=== PATIENT | female | born 1990 | race Caucasian/White ===

== ENCOUNTER 2017-04-11 07:05 | Inpatient (IN) | payer BC ==
[2017-04-11] MEDS ORDERED: Misoprostol 25 MCG (1/4 of 100 MCG) Tab ONE (07:19)
[2017-04-11] MEDS ORDERED: Ondansetron 4 MG/2 ML SDV IVPUSH PRN (07:29)
[2017-04-11] MEDS ORDERED: Misoprostol 25 MCG (1/4 of 100 MCG) Tab VAG PRN (07:29)
[2017-04-11] MEDS ORDERED: Sodium Chloride 0.9% 10 ML Syringe FLUSH PRN (07:29)
[2017-04-11] MEDS ORDERED: Ampicillin 2 GM in Sodium Chloride 0.9% 100 ML IV ONE (07:29)
[2017-04-11] MEDS ORDERED: Oxytocin/Lactated Ringers 10 UNIT/1,000 ML BAG IV SCH ×2 (07:30)
--- NOTE | 2017-04-11 07:39 | PCM.LDHP ---
L&D History of Present Illness - General Date of Service: 04/11/17 Admit Problem/Dx: Patient Status Order with Admit Dx/Problem 04/11/17 07:30 Patient Status [ADT] Routine Admission Diagnosis/Problem Admission Diagnosis/Problem Normal Source of Information: Patient History Limitations: Reports: No Limitations - History of Present Illness Introduction:: Patient is a 27 y/o at 39 2/7 wks who presents for planned induction of labor. Doing well today. No patterned contractions, but getting some irritability. - Related Data Allergies/Adverse Reactions: Allergies Allergy/AdvReac Type Severity Reaction Status Date / Time tramadol AdvReac Headache Verified 03/26/15 14:52 Home Medications: Home Meds Cholecalciferol (Vitamin D3) [Vitamin D3] 1 cap PO ASDIRECTED 01/02/15 [History] tiZANidine [Zanaflex] 1 tab PO ASDIRECTED PRN 01/02/15 [History] Citalopram [Celexa] 40 mg PO DAILY 02/20/15 [History] Calcium Carbonate/Vitamin D3 [Os-Mykel 500+D] 1 each PO BID #60 tablet 02/22/15 [ Rx] Acetaminophen with Codeine [Acetamin-Codein 300-30 mg/12.5] 12.5 ml PO Q6H PRN # 1 bottle 03/26/15 [Rx] Amoxicillin 500 mg PO BID #14 capsule 03/26/15 [Rx] Past Medical History Other HEENT History: wears glasses [employer] History: Reports: : 4 Para: 3 LMP (Approximate): Psychiatric History: Reports: Depression Endocrine/Metabolic History: Reports: Hypothyroidism - Past Surgical History Endocrine Surgical History: Reports: Thyroidectomy (Left - hemithyroidectomy) Other Endocrine Surgeries/Procedures: partial throidectomy Social & Family History - Tobacco Use Smoking Status *Q: Never Smoker Second Hand Smoke Exposure: No - Alcohol Use Alcohol Use History: No Days Per Week of Alcohol Use: 0 - Recreational Drug Use Recreational Drug Use: No Drug Use in Last 12 Months: No H&P Review of Systems - Review of Systems: Review Of Systems: See Below General: Reports: No Symptoms Pulmonary: Reports: No Symptoms Cardiovascular: Reports: No Symptoms Gastrointestinal: Reports: No Symptoms Genitourinary: Reports: No Symptoms Musculoskeletal: Reports: Back Pain Psychiatric: Reports: Anxiety L&D Exam - Exam Exam: See Below - OB Specific Contraction Intensity: Irritability Movement: Active Heart Tones: Present Heart Tones per Min: 135 Heart Rate (FHR) Variability: Moderate (6-25 bmp) Presentation: Vertex - Benavides Score Benavides Score Cervix Position: Midposition Benavides Score Consistency: Medium Benavides Score Effacement: 51-70% Benavides Score Dilation: 1-2 cm Benavides Score 's Station: -2 Benavides Score Total: 6 - Exam General: Alert, Oriented, Cooperative Lungs: Clear to Auscultation, Normal Respiratory Effort Cardiovascular: Regular Rate, Regular Rhythm GI/Abdominal Exam: Soft, Non-Tender Genitourinary: Normal external exam Back Exam: Normal Inspection Skin: Warm, Dry, Intact - Problem List (1) 39 weeks gestation of SNOMED Code(s): 44719343 ICD Code: Z3A.39 - 39 WEEKS GESTATION OF Status: Acute Current Visit: Yes (2) Thyroid disease SNOMED Code(s): 52605386 ICD Code: E07.9 - DISORDER OF THYROID, UNSPECIFIED Status: Acute Current Visit: Yes (3) Depression with anxiety SNOMED Code(s): 543010781 ICD Code: F41.8 - OTHER SPECIFIED ANXIETY DISORDERS Status: Acute Current Visit: Yes (4) GBS (group B Streptococcus carrier), +RV culture, currently SNOMED Code(s): 39983231 ICD Code: O99.820 - STREPTOCOCCUS B CARRIER STATE COMPLICATING Status: Acute Current Visit: Yes Problem List Initiated/Reviewed/Updated: Yes Orders Last 24hrs: Active Orders 24 hr Category Date Time Status Patient Status [ADT] Routine ADT 04/11/17 07:30 Ordered Activity as Tolerated [RC] PFP Care 04/11/17 07:30 Ordered Communication Order [RC] ASDIRECTED Care 04/11/17 07:30 Ordered Communication Order [RC] ASDIRECTED Care 04/11/17 07:30 Ordered Communication Order [RC] ASDIRECTED Care 04/11/17 07:30 Ordered Heart Tones [RC] ASDIRECTED Care 04/11/17 07:30 Ordered Notify Provider [RC] ASDIRECTED Care 04/11/17 07:30 Ordered Notify Provider [RC] PRN Care 04/11/17 07:30 Ordered Peripheral IV Care [RC] . DIRECTED Care 04/11/17 07:30 Ordered Vaginal Exam [RC] ASDIRECTED Care 04/11/17 07:30 Ordered Vital Signs [RC] ASDIRECTED Care 04/11/17 07:30 Ordered Regular Diet [DIET] Diet 04/11/17 Breakfast Ordered CBC W/O DIFF,HEMOGRAM [HEME] Routine Lab 04/11/17 07:29 Ordered TYPE AND SCREEN [BBK] Routine Lab 04/11/17 07:29 Ordered Ampicillin 1 gm Med 04/11/17 07:30 Ordered Sodium Chloride 0.9% [Normal Saline] 100 ml IV Q4H Ampicillin 2 gm Med 04/11/17 07:29 Ordered Sodium Chloride 0.9% [Normal Saline] 100 ml IV ONETIME Lactated Ringers [Ringers, Lactated] 1,000 ml Med 04/11/17 07:30 Ordered IV ASDIRECTED Misoprostol [Cytotec] Med 04/11/17 07:29 Ordered 25 mcg VAG Q4H PRN Nalbuphine [Nubain] Med 04/11/17 07:29 Ordered 10 mg IVPUSH Q2H PRN Ondansetron [Zofran] Med 04/11/17 07:29 Ordered 4 mg IVPUSH Q4H PRN Oxytocin/Lactated Ringers [Pitocin in LR 10 Units/1,000 Med 04/11/17 07:30 Ordered ML] 10 unit in 1,000 ml IV .CONTINUOUS Oxytocin/Lactated Ringers [Pitocin in LR 10 Units/1,000 Med 04/11/17 07:30 Ordered ML] 10 unit in 1,000 ml IV TITRATE Sodium Chloride 0.9% [Saline Flush] Med 04/11/17 07:29 Ordered 10 ml FLUSH ASDIRECTED PRN Electronic Heart Tones Ext w TOCO [WOMSER] Oth 04/11/17 07:30 Ordered Routine Peripheral IV Insertion Adult [OM.PC] Routine Oth 04/11/17 07:30 Ordered Resuscitation Status Routine Resus Stat 04/11/17 07:29 Ordered Assessment/Plan Comment:: 27 y/o at 39 2/7 wks gestation presents for elective IOL * CBC and T&S * GBS positive, will start Ampicillin * Cytotec per patient preference for IOL. Will proceed with AROM when able * Pain control per patient preference * Continue home thyroid * Continue home Zoloft * Anticipate
[2017-04-11] MEDS: Lactated Ringers 1,000 ML IV SCH ×2 (08:12→16:02)
[2017-04-11] MEDS ORDERED: Sertraline 50 MG Tab PO SCH (09:00)
[2017-04-11] MEDS: Ampicillin 1 GM in Sodium Chloride 0.9% 100 ML IV SCH ×3 (12:00→20:03)
--- NOTE | 2017-04-11 12:24 | PCM.PNLD ---
Labor Progress Note - VS & Meds Vital Signs: Last Vital Signs Temp 36.8 C 04/11/17 07:30 Pulse 107 H 04/11/17 07:30 Resp 18 04/11/17 07:30 BP 128/83 04/11/17 07:30 Pulse Ox 98 04/11/17 07:30 Active Medications: Current Medications Ampicillin Sodium 1 gm/ Sodium (Chloride) 100 mls @ 200 mls/hr IV Q4H IVETTE Last Admin: 04/11/17 12:00 Dose: 200 mls/hr Lactated Ringer's (Ringers, Lactated) 1,000 mls @ 40 mls/hr IV ASDIRECTED IVETTE Last Admin: 04/11/17 08:12 Dose: 40 mls/hr Oxytocin/Lactated Ringer's (Pitocin In Lr 10 Units/1,000 Ml) 10 unit in 1,000 mls @ 12 mls/hr IV TITRATE IVTETE; 2 MUNITS/MIN PRN Reason: Protocol Oxytocin/Lactated Ringer's (Pitocin In Lr 10 Units/1,000 Ml) 10 unit in 1,000 mls @ 500 mls/hr IV .CONTINUOUS [facility] Levothyroxine Sodium (Levothyroxine) 25 mcg PO ACBREAKFAST [facility] Misoprostol (Cytotec) 25 mcg VAG Q4H PRN PRN Reason: cervical ripening Last Admin: 04/11/17 08:12 Dose: 25 mcg Nalbuphine HCl (Nubain) 10 mg IVPUSH Q2H PRN PRN Reason: Pain (moderate 4-6) Ondansetron HCl (Zofran) 4 mg IVPUSH Q4H PRN PRN Reason: Nausea/Vomiting Sertraline HCl (Zoloft) 50 mg PO DAILY [facility] Last Admin: 04/11/17 10:14 Dose: Not Given Sodium Chloride (Saline Flush) 10 ml FLUSH ASDIRECTED PRN PRN Reason: Keep Vein Open Discontinued Medications Ampicillin Sodium 2 gm/ Sodium (Chloride) 100 mls @ 200 mls/hr IV ONETIME ONE Stop: 04/11/17 07:58 Last Admin: 04/11/17 08:12 Dose: 200 mls/hr Misoprostol (Cytotec) Confirm Administered Dose 25 mcg .ROUTE .STK-MED ONE Stop: 04/11/17 07:20 Last Admin: 04/11/17 08:12 Dose: Not Given - Uterine Contractions Uterine Monitoring Mode: External [place] Contraction Intensity: Mild to Moderate Uterine Resting Tone: Soft - Monitoring Monitor Mode: External Ultrasound Heart Rate (FHR) Baseline: 135 Heart Rate (FHR) Variability: Moderate (6-25 bmp) Accelerations: Present, 15x15 Strip Review: Category I - Vaginal Exam Dilation (cm): 3 Effacement (Percent): 50 Station: -2 Cervical Position: Midposition - Labor Progress (Free Text) Labor Progress: Patient did well with first dose of cytotec. Some cramping/rare contractions. AROM done with release of clear fluid. About 10 minutes after AROM performed baby with a prolonged deceleration into the 60's for 5 minutes, then back up to 110, then down to 70's for another 1 minutes before recovery. OR crew alerted along with anesthesia team. Will continue to monitor closely as now appropriate tracing. Will be ready for stat if needed Meme Grullon MD
[2017-04-11] MEDS ORDERED: Midazolam 1 MG/ML 2 ML SDV ONE (12:41)
[2017-04-11] MEDS ORDERED: Propofol 200 MG/20 ML SDV ONE (12:41)
[2017-04-11] MEDS ORDERED: Lactated Ringers 1,000 ML ONE (12:41)
[2017-04-11] MEDS ORDERED: fentaNYL 250 MCG/5 ML SDV ONE (12:41)
[2017-04-11] MEDS ORDERED: ceFAZolin 1 GM Vial ONE (12:41)
[2017-04-11] MEDS ORDERED: Phenylephrine/Normal Saline 100 MCG/ML 10 ML Syringe ONE (12:42)
[2017-04-11] MEDS ORDERED: Succinylcholine 200 MG/10 ML MDV ONE (12:42)
[2017-04-11] MEDS ORDERED: Oxytocin 10 Units/1 ML SDV ONE (12:42)
--- NOTE | 2017-04-11 12:58 | PCM.PREANE ---
Preanesthetic Assessment - Procedure Proposed Procedure: - Anesthesia/Transfusion/Family Hx Anesthesia History: Prior Anesthesia Without Reaction Family History of Anesthesia Reaction: No Transfusion History: No Prior Transfusion(s) Intubation History: Unknown - Review of Systems General: No Symptoms Pulmonary: No Symptoms Cardiovascular: No Symptoms Gastrointestinal: No Symptoms Neurological: Numbness (At times in both legs), Tingling (At times in both legs) , Other (Back pain and back spasms) Other: Reports: Depression, Anxiety - Physical Assessment NPO Status Date: 04/11/17 NPO Status Time: 12:00 ([place]) O2 Sat by Pulse Oximetry: 98 Respiratory Rate: 18 Vital Signs: Last Vital Signs Temp 36.8 C 04/11/17 07:30 Pulse 107 H 04/11/17 07:30 Resp 18 04/11/17 07:30 BP 128/83 04/11/17 07:30 Pulse Ox 98 04/11/17 07:30 Height: 1.63 m Weight: 86.908 kg ASA Class: 2 Mental Status: Alert & Oriented x3 Airway Class: Mallampati = 1 Dentition: Reports: Normal Dentition (Large front incisors), Broken Tooth/Teeth (Broken tooth molar back right) Thyro-Mental Finger Breadths: 2 Mouth Opening Finger Breadths: 3 ROM/Head Extension: Full Lungs: Clear to Auscultation, Normal Respiratory Effort Cardiovascular: Regular Rate, Regular Rhythm - Lab Values: Laboratory Last Values WBC 8.63 K/mm3 (3.98-10.04) 04/11/17 07:50 RBC 3.89 M/mm3 (3.98-5.22) L 04/11/17 07:50 Hgb 10.5 gm/L (11.2-15.7) L 04/11/17 07:50 Hct 33.0 % (34.1-44.9) L 04/11/17 07:50 MCV 84.8 fl (79.4-94.8) 04/11/17 07:50 MCH 27.0 pg (25.6-32.2) 04/11/17 07:50 MCHC 31.8 g/dl (32.2-35.5) L 04/11/17 07:50 RDW Std Deviation 42.2 fL (36.4-46.3) 04/11/17 07:50 Plt Count 275 K/mm3 (182-369) 04/11/17 07:50 MPV 9.6 fl (9.4-12.3) 04/11/17 07:50 Blood Type O POSITIVE 04/11/17 07:50 Gel Antibody Screen Negative 04/11/17 07:50 - Allergies Allergies/Adverse Reactions: Allergies Allergy/AdvReac Type Severity Reaction Status Date / Time tramadol AdvReac Headache Verified 03/26/15 14:52 - Acknowledgements Anesthesia Type Planned: General Anesthesia, Spinal Pt an Appropriate Candidate for the Planned Anesthesia: Yes Alternatives and Risks of Anesthesia Discussed w Pt/Guardian: Yes Pt/Guardian Understands and Agrees with Anesthesia Plan: Yes PreAnesthesia Questionnaire Other HEENT History: wears glasses [employer] History: Reports: Neurological History: Reports: Migraines Psychiatric History: Reports: Anxiety, Depression Endocrine/Metabolic History: Reports: Hypothyroidism - Past Surgical History Other HEENT Surgeries/Procedures: partial thyroidectomy 2 years ago Endocrine Surgical History: Reports: Thyroidectomy Other Endocrine Surgeries/Procedures: partial throidectomy Neurological Surgical History: Reports: None - SUBSTANCE USE Smoking Status *Q: Never Smoker Tobacco Use Within Last Twelve Months: No Second Hand Smoke Exposure: No Days Per Week of Alcohol Use: 0 Recreational Drug Use History: No - HOME MEDS Home Medications: Home Meds Cyclobenzaprine [Flexeril] 1 tab PO DAILY PRN 04/11/17 [History] Levothyroxine 1 tab PO DAILY 04/11/17 [History] [id number]/Iron Fumarate/FA/DSS [ 19 Tablet] 1 tab PO DAILY 04/11/17 [ History] Sertraline [Zoloft] 50 mg PO DAILY 04/11/17 [History] - CURRENT (IN HOUSE) MEDS Current Meds: Current Medications Ampicillin Sodium 1 gm/ Sodium (Chloride) 100 mls @ 200 mls/hr IV Q4H IVETTE Last Admin: 04/11/17 12:00 Dose: 200 mls/hr Lactated Ringer's (Ringers, Lactated) 1,000 mls @ 40 mls/hr IV ASDIRECTED IVETTE Last Admin: 04/11/17 08:12 Dose: 40 mls/hr Oxytocin/Lactated Ringer's (Pitocin In Lr 10 Units/1,000 Ml) 10 unit in 1,000 mls @ 12 mls/hr IV TITRATE IVETTE; 2 MUNITS/MIN PRN Reason: Protocol Oxytocin/Lactated Ringer's (Pitocin In Lr 10 Units/1,000 Ml) 10 unit in 1,000 mls @ 500 mls/hr IV .CONTINUOUS [facility] Levothyroxine Sodium (Levothyroxine) 25 mcg PO ACBREAKFAST [facility] Misoprostol (Cytotec) 25 mcg VAG Q4H PRN PRN Reason: cervical ripening Last Admin: 04/11/17 08:12 Dose: 25 mcg Nalbuphine HCl (Nubain) 10 mg IVPUSH Q2H PRN PRN Reason: Pain (moderate 4-6) Ondansetron HCl (Zofran) 4 mg IVPUSH Q4H PRN PRN Reason: Nausea/Vomiting Sertraline HCl (Zoloft) 50 mg PO DAILY [facility] Last Admin: 04/11/17 10:14 Dose: Not Given Sodium Chloride (Saline Flush) 10 ml FLUSH ASDIRECTED PRN PRN Reason: Keep Vein Open Discontinued Medications Cefazolin Sodium (Ancef) Confirm Administered Dose 2 gm .ROUTE .STK-MED ONE Stop: 04/11/17 12:42 Fentanyl (Sublimaze) Confirm Administered Dose 250 mcg .ROUTE .STK-MED ONE Stop: 04/11/17 12:42 Ampicillin Sodium 2 gm/ Sodium (Chloride) 100 mls @ 200 mls/hr IV ONETIME ONE Stop: 04/11/17 07:58 Last Admin: 04/11/17 08:12 Dose: 200 mls/hr Lactated Ringer's (Ringers, Lactated) Confirm Administered Dose 2,000 mls @ as directed .ROUTE .STK-MED ONE Stop: 04/11/17 12:42 Midazolam HCl (Versed 1 Mg/Ml) Confirm Administered Dose 2 mg .ROUTE .STK-MED ONE Stop: 04/11/17 12:42 Misoprostol (Cytotec) Confirm Administered Dose 25 mcg .ROUTE .STK-MED ONE Stop: 04/11/17 07:20 Last Admin: 04/11/17 08:12 Dose: Not Given Oxytocin (Pitocin) Confirm Administered Dose 10 unit .ROUTE .STK-MED ONE Stop: 04/11/17 12:43 Phenylephrine HCl (Phenylephrine In Ns 100 Mcg/Ml) Confirm Administered Dose 1 mg .ROUTE .STK-MED ONE Stop: 04/11/17 12:43 Propofol (Diprivan 20 Ml) Confirm Administered Dose 200 mg .ROUTE .STK-MED ONE Stop: 04/11/17 12:42 Succinylcholine Chloride (Quelicin) Confirm Administered Dose 200 mg .ROUTE .STK -MED ONE Stop: 04/11/17 12:43
--- NOTE | 2017-04-11 17:05 | PCM.PNLD ---
Labor Progress Note - VS & Meds Vital Signs: Last Vital Signs Temp 36.8 C 04/11/17 07:30 Pulse 107 H 04/11/17 07:30 Resp 18 04/11/17 13:00 BP 128/83 04/11/17 07:30 Pulse Ox 98 04/11/17 13:00 Active Medications: Current Medications Ampicillin Sodium 1 gm/ Sodium (Chloride) 100 mls @ 200 mls/hr IV Q4H [facility] Last Admin: 04/11/17 16:01 Dose: 200 mls/hr Lactated Ringer's (Ringers, Lactated) 1,000 mls @ 40 mls/hr IV ASDIRECTED IVETTE Last Admin: 04/11/17 16:02 Dose: 40 mls/hr Oxytocin/Lactated Ringer's (Pitocin In Lr 10 Units/1,000 Ml) 10 unit in 1,000 mls @ 12 mls/hr IV TITRATE IVETTE; 2 MUNITS/MIN PRN Reason: Protocol Oxytocin/Lactated Ringer's (Pitocin In Lr 10 Units/1,000 Ml) 10 unit in 1,000 mls @ 500 mls/hr IV .CONTINUOUS [facility] Levothyroxine Sodium (Levothyroxine) 25 mcg PO ACBREAKFAST [facility] Misoprostol (Cytotec) 25 mcg VAG Q4H PRN PRN Reason: cervical ripening Last Admin: 04/11/17 08:12 Dose: 25 mcg Nalbuphine HCl (Nubain) 10 mg IVPUSH Q2H PRN PRN Reason: Pain (moderate 4-6) Ondansetron HCl (Zofran) 4 mg IVPUSH Q4H PRN PRN Reason: Nausea/Vomiting Sertraline HCl (Zoloft) 50 mg PO DAILY [facility] Last Admin: 04/11/17 10:14 Dose: Not Given Sodium Chloride (Saline Flush) 10 ml FLUSH ASDIRECTED PRN PRN Reason: Keep Vein Open Discontinued Medications Cefazolin Sodium (Ancef) Confirm Administered Dose 2 gm .ROUTE .STK-MED ONE Stop: 04/11/17 12:42 Fentanyl (Sublimaze) Confirm Administered Dose 250 mcg .ROUTE .STK-MED ONE Stop: 04/11/17 12:42 Ampicillin Sodium 2 gm/ Sodium (Chloride) 100 mls @ 200 mls/hr IV ONETIME ONE Stop: 04/11/17 07:58 Last Admin: 04/11/17 08:12 Dose: 200 mls/hr Lactated Ringer's (Ringers, Lactated) Confirm Administered Dose 2,000 mls @ as directed .ROUTE .STK-MED ONE Stop: 04/11/17 12:42 Midazolam HCl (Versed 1 Mg/Ml) Confirm Administered Dose 2 mg .ROUTE .STK-MED ONE Stop: 04/11/17 12:42 Misoprostol (Cytotec) Confirm Administered Dose 25 mcg .ROUTE .STK-MED ONE Stop: 04/11/17 07:20 Last Admin: 04/11/17 08:12 Dose: Not Given Oxytocin (Pitocin) Confirm Administered Dose 10 unit .ROUTE .STK-MED ONE Stop: 04/11/17 12:43 Phenylephrine HCl (Phenylephrine In Ns 100 Mcg/Ml) Confirm Administered Dose 1 mg .ROUTE .STK-MED ONE Stop: 04/11/17 12:43 Propofol (Diprivan 20 Ml) Confirm Administered Dose 200 mg .ROUTE .STK-MED ONE Stop: 04/11/17 12:42 Succinylcholine Chloride (Quelicin) Confirm Administered Dose 200 mg .ROUTE .STK -MED ONE Stop: 04/11/17 12:43 - Uterine Contractions Uterine Monitoring Mode: External [place] Contraction Intensity: Mild to Moderate Uterine Resting Tone: Soft - Monitoring Monitor Mode: External Ultrasound Heart Rate (FHR) Baseline: 125 Heart Rate (FHR) Variability: Moderate (6-25 bmp) Accelerations: Present, 15x15 Strip Review: Category I - Vaginal Exam Dilation (cm): 4-5 Effacement (Percent): 50 Station: -2 Cervical Position: Midposition - Labor Progress (Free Text) Labor Progress: Doing well. Feels that contractions are getting stronger. No other concerns.
[2017-04-11] MEDS: Nalbuphine 20 MG/1 ML Amp IVPUSH PRN ×3 (18:01→22:02)
[2017-04-11] MEDS ORDERED: Lidocaine 1% 50 ML MDV ONE (22:55)
--- NOTE | 2017-04-12 00:03 | PCM.SN ---
- Free Text/Narrative Note: Carmela is a 27-year-old multigravida female who is admitted on 04/11/2017 for elective induction of labor per patient desire. She is at 39-2/7 weeks gestational age. Induction of labor was with Cytotec and with artificial rupture membranes. Patient declined use of any Pitocin during induction. She progressed steadily but slowly to complete cervical dilation by approximately 2300 hrs. on 04/11/2014. She is group B strep positive and did receive antibiotics per protocol consisting of ampicillin during labor. She had at least 4 doses total. She did receive at least 2 doses of Nubain during the course of her labor. Patient pushed and delivered a viable, pepper, 3150 g ( 6 lbs. 15 oz.), 21 inches long male infant at 2323 hrs. on 04/11/2017. Baby was delivered in occiput anterior position over an intact perineum. The baby was placed on mom's abdomen and nose and mouth were bulb suctioned. The cord was allowed to pulsate until it stopped and then it was clamped and was cut by the patient herself. The placenta eventually delivered at 2334 hrs. in an intact, complete fashion in a Flores presentation. Patient's perineum was checked and found to have only small superficial abrasion with no anatomical distortion and no significant bleeding. After the placenta was delivered Pitocin was administered IV and the patient did breast- feed the baby to facilitate increase in uterine tone and reduce risk of bleeding. Estimated blood loss was 100 mL. Patient plans to breast-feed. Condition: Good
[2017-04-12] MEDS ORDERED: Acetaminophen 325 MG Tab PO PRN (02:26)
[2017-04-12] MEDS ORDERED: Benzocaine/Menthol 20%-0.5% Spray 56 GM Canister TOP PRN (02:26)
[2017-04-12] MEDS ORDERED: Docusate Sodium 100 MG Cap PO PRN (02:26)
[2017-04-12] MEDS ORDERED: Lanolin 100% Cream 7 GM Tube TOP PRN (02:26)
[2017-04-12] MEDS ORDERED: Witch Hazel Medicated Pads 100/Jar TOP PRN (02:26)
[2017-04-12] MEDS: Ibuprofen 600 MG Tab PO PRN ×3 (02:57→18:12)
[2017-04-12] MEDS ORDERED: Levothyroxine 25 MCG Tab PO SCH (06:00)
[2017-04-12] MEDS ORDERED: Prenatal Multivitamin with Calcium/Folic Acid/Iron Tab PO SCH (09:00)
--- NOTE | 2017-04-12 13:08 | PCM.SN ---
- Free Text/Narrative Note: The patient is post-vaginal delivery day 1. She was induced by manual rupture of membranes and cytotec. She had minimal subcutaneous tearing, which did not require suture. She is feeling well overall. She is taking Motrin 600mg q4hrs for pain management. Pain is tolerable. She reports that bleeding has decreased. She has been able to urinate. No foul smelling discharge, fever, or chills. Hgb was 10.3 today. She is . She has no current concerns. Vital signs are within normal limits. Alert and orientated. Abdomen is soft, non-tender, and non-distended. Uterus is soft and below the umbilicus on palpation. Assessment 1. Normal post-delivery day 1 Plan 1. Routine post- care
[2017-04-12] MEDS: Levothyroxine 25 MCG Tab PO SCH ×2 (16:12→20:13)
[2017-04-12] MEDS: Sertraline 50 MG Tab PO SCH ×2 (16:12→20:12)
[2017-04-12] MEDS: Ampicillin 1 GM in Sodium Chloride 0.9% 100 ML IV SCH (19:55)
[2017-04-12] MEDS: Cyclobenzaprine 10 MG Tab PO PRN (20:13)
[2017-04-13] MEDS: Sertraline 50 MG Tab PO SCH (09:20)
[2017-04-13] MEDS: Levothyroxine 25 MCG Tab PO SCH (09:20)
[2017-04-13] MEDS: Cyclobenzaprine 10 MG Tab PO PRN (10:53)
--- NOTE | 2017-04-13 10:56 | PCM.DCSUM1 ---
Discharge Summary - Hospital Course Free Text/Narrative:: Carmela is a 27-year-old multigravida female who is admitted on 04/11/2017 for elective induction of labor per patient desire. She is at 39-2/7 weeks gestational age. Induction of labor was with Cytotec and with artificial rupture membranes. Patient declined use of any Pitocin during induction. She progressed steadily but slowly to complete cervical dilation by approximately 2300 hrs. on 04/11/2014. She is group B strep positive and did receive antibiotics per protocol consisting of ampicillin during labor. She had at least 4 doses total. She did receive at least 2 doses of Nubain during the course of her labor. Patient pushed and delivered a viable, pepper, 3150 g ( 6 lbs. 15 oz.), 21 inches long male infant at 2323 hrs. on 04/11/2017. Baby was delivered in occiput anterior position over an intact perineum. The baby was placed on mom's abdomen and nose and mouth were bulb suctioned. The cord was allowed to pulsate until it stopped and then it was clamped and was cut by the patient herself. The placenta eventually delivered at 2334 hrs. in an intact, complete fashion in a Flores presentation. Patient's perineum was checked and found to have only small superficial abrasion with no anatomical distortion and no significant bleeding. After the placenta was delivered Pitocin was administered IV and the patient did breast- feed the baby to facilitate increase in uterine tone and reduce risk of bleeding. Estimated blood loss was 100 mL. Patient is breast-feeding without problems however milk has not come in completely. Patient is doing well has had normal vital signs throughout the course. Follow-up CBC is within normal limits for the period. She is doing well and desires discharge today. - Discharge Data Discharge Date: 04/13/17 Discharge Disposition: Home, Self-Care 01 Condition: Good - Patient Instructions Diet: Regular Diet as Tolerated (Nursing diet with increased calories and calcium as recommended) Activity: As Tolerated (No intercourse or tampons until bleeding resolves.) Driving: May Drive Today Showering/Bathing: May Shower (May take a bath) Notify Provider of: Fever, Increased Pain, Swelling and Redness, Nausea and/or Vomiting - Discharge Plan Home Medications: Home Meds Cyclobenzaprine [Flexeril] 1 tab PO DAILY PRN 04/11/17 [History] Levothyroxine 1 tab PO DAILY 04/11/17 [History] FIP622/Iron Fumarate/FA/DSS [ 19 Tablet] 1 tab PO DAILY 04/11/17 [ History] Sertraline [Zoloft] 50 mg PO DAILY 04/11/17 [History] Ibuprofen [IJD: Ibuprofen] 600 mg PO Q4H PRN tablet 04/13/17 [Rx] Patient Handouts: Home Care Instructions for Mom, Challenges and Solutions Referrals: Meme Grullon MD [Primary Care Provider] - (make follow up appointment with Dr Grullon at [facility] in 2-6 weeks. ) - Discharge Summary/Plan Comment DC Time >30 min.: No Discharge Summary/Plan Comment: Discharge instructions: 1. Discharge home 2. Diet, activity and follow-up discussed with patient. Recommend nursing diet with increased calories and calcium. 3. Precautions given concern increased pain, bleeding, temperature, signs/ symptoms of DVT/PE. 4. Medications per home medication was printed, discussed with and given to the patient. 5. Return to clinic-Dr. Grullon in 3-5 weeks. Diagnosis: Term -delivered Condition: Good - Patient Data Vitals - Most Recent: Last Vital Signs Temp 36.7 C 04/13/17 04:37 Pulse 69 04/13/17 04:37 Resp 16 04/13/17 04:37 BP 111/73 04/13/17 04:37 Pulse Ox 100 04/13/17 04:37 Weight - Most Recent: 86.908 kg I&O - Last 24 hours: Intake & Output 04/12/17 04/13/17 04/13/17 22:59 06:59 14:59 Intake Total 60 Balance 60 Med Orders - Current: Current Medications Acetaminophen (Tylenol) 650 mg PO Q4H PRN PRN Reason: mild pain or fever Benzocaine/Menthol (Dermoplast Pain Relief [place]) 0 gm TOP ASDIRECTED PRN PRN Reason: Perineal Comfort Measure Last Admin: 04/12/17 02:58 Dose: 1 applic Cyclobenzaprine HCl (Flexeril) 10 mg PO TID PRN PRN Reason: Pain Last Admin: 04/12/17 20:13 Dose: 10 mg Docusate Sodium (Colace) 100 mg PO BID PRN PRN Reason: Constipation Emollient Ointment (Lansinoh Hpa) 0 gm TOP ASDIRECTED PRN PRN Reason: Sore Nipples Ibuprofen (Motrin) 600 mg PO Q4H PRN PRN Reason: Mild pain or fever Last Admin: 04/12/17 18:12 Dose: 600 mg Levothyroxine Sodium (Levothyroxine) 25 mcg PO ACBREAKFAST [facility] Last Admin: 04/13/17 09:20 Dose: Not Given Prenat Multivit/Springer/Iron/Folic Ac ( Plus Iron) 1 each PO DAILY [facility] Last Admin: 04/12/17 16:12 Dose: Not Given Sertraline HCl (Zoloft) 50 mg PO DAILY [facility] Last Admin: 04/13/17 09:20 Dose: Not Given Witch Latisha (Tucks) 1 pad TOP ASDIRECTED PRN PRN Reason: Hemorrhoid pain Last Admin: 04/12/17 02:58 Dose: 1 applic Discontinued Medications Cefazolin Sodium (Ancef) Confirm Administered Dose 2 gm .ROUTE .STK-MED ONE Stop: 04/11/17 12:42 Fentanyl (Sublimaze) Confirm Administered Dose 250 mcg .ROUTE .STK-MED ONE Stop: 04/11/17 12:42 Ampicillin Sodium 2 gm/ Sodium (Chloride) 100 mls @ 200 mls/hr IV ONETIME ONE Stop: 04/11/17 07:58 Last Admin: 04/11/17 08:12 Dose: 200 mls/hr Ampicillin Sodium 1 gm/ Sodium (Chloride) 100 mls @ 200 mls/hr IV Q4H [facility] Last Admin: 04/12/17 19:55 Dose: Not Given Lactated Ringer's (Ringers, Lactated) 1,000 mls @ 40 mls/hr IV ASDIRECTED IVETTE Last Admin: 04/11/17 16:02 Dose: 40 mls/hr Oxytocin/Lactated Ringer's (Pitocin In Lr 10 Units/1,000 Ml) 10 unit in 1,000 mls @ 12 mls/hr IV TITRATE IVETTE; 2 MUNITS/MIN PRN Reason: Protocol Oxytocin/Lactated Ringer's (Pitocin In Lr 10 Units/1,000 Ml) 10 unit in 1,000 mls @ 500 mls/hr IV .CONTINUOUS IVETTE Lactated Ringer's (Ringers, Lactated) Confirm Administered Dose 1,000 mls @ as directed .ROUTE .STK-MED ONE Stop: 04/11/17 12:42 Levothyroxine Sodium (Levothyroxine) 25 mcg PO ACBREAKFAST IVETTE Lidocaine HCl (Xylocaine 1%) Confirm Administered Dose 50 ml .ROUTE .STK-MED ONE Stop: 04/11/17 22:56 Last Admin: 04/12/17 19:55 Dose: Not Given Midazolam HCl (Versed 1 Mg/Ml) Confirm Administered Dose 2 mg .ROUTE .STK-MED ONE Stop: 04/11/17 12:42 Misoprostol (Cytotec) Confirm Administered Dose 25 mcg .ROUTE .STK-MED ONE Stop: 04/11/17 07:20 Last Admin: 04/11/17 08:12 Dose: Not Given Misoprostol (Cytotec) 25 mcg VAG Q4H PRN PRN Reason: cervical ripening Last Admin: 04/11/17 08:12 Dose: 25 mcg Nalbuphine HCl (Nubain) 10 mg IVPUSH Q2H PRN PRN Reason: Pain (moderate 4-6) Last Admin: 04/11/17 22:02 Dose: 10 mg Ondansetron HCl (Zofran) 4 mg IVPUSH Q4H PRN PRN Reason: Nausea/Vomiting Oxytocin (Pitocin) Confirm Administered Dose 10 unit .ROUTE .STK-MED ONE Stop: 04/11/17 12:43 Phenylephrine HCl (Phenylephrine In Ns 100 Mcg/Ml) Confirm Administered Dose 1 mg .ROUTE .STK-MED ONE Stop: 04/11/17 12:43 Propofol (Diprivan 20 Ml) Confirm Administered Dose 200 mg .ROUTE .STK-MED ONE Stop: 04/11/17 12:42 Sertraline HCl (Zoloft) 50 mg PO DAILY [facility] Last Admin: 04/11/17 10:14 Dose: Not Given Sodium Chloride (Saline Flush) 10 ml FLUSH ASDIRECTED PRN PRN Reason: Keep Vein Open Succinylcholine Chloride (Quelicin) Confirm Administered Dose 200 mg .ROUTE .STK -MED ONE Stop: 04/11/17 12:43 *Q Meaningful Use (DIS) - VTE *Q VTE Criteria *Q: - Stroke *Q Stroke Criteria *Q: - AMI *Q AMI Criteria *Q:
[2017-04-13 11:26] VITALS: BP 128/86
== END 2017-04-13 12:00 | disposition home or self-care (01) | DRG 560 ==
LOC: JD.OB 07:05 → OBSVTOIN 23:23 → JD.OB 23:23 → INTOOBSV 23:23 → JD.OB 04-12 00:03 → OBSVTOIN 04-12 00:03 → UNDODISIN 04-13 12:00
PROVIDERS: ADMIT Obstetrics & Gynecology; ATTEND Obstetrics & Gynecology
PROC: 10E0XZZ Delivery of Products of Conception, External Approach (ICD-10-PCS; principal; 2017-04-11)
PROC: 3E0P7VZ Introduction of Hormone into Female Reproductive, Via Natural or Artificial Opening (ICD-10-PCS; 2017-04-11)
PROC: 10907ZC Drainage of Amniotic Fluid, Therapeutic from Products of Conception, Via Natural or Artificial Opening (ICD-10-PCS; 2017-04-11)
PROC: 00HU33Z Insertion of Infusion Device into Spinal Canal, Percutaneous Approach (ICD-10-PCS; 2017-04-11)
PROC: 3E0R3BZ Introduction of Anesthetic Agent into Spinal Canal, Percutaneous Approach (ICD-10-PCS; 2017-04-11)
DX: O99.284 Endocrine, nutritional and metabolic diseases complicating childbirth (principal); E03.9 Hypothyroidism, unspecified; O99.824 Streptococcus B carrier state complicating childbirth; O99.344 Other mental disorders complicating childbirth; F32.9 Major depressive disorder, single episode, unspecified; Z3A.39 39 weeks gestation of pregnancy; Z37.0 Single live birth; Z79.899 Other long term (current) drug therapy
CPT/HCPCS: 36415; 59409; 85027; 86850; 86900; 86901; A9270-GY; J0290; J0330; J0690; J2250; J2300; J2590; J2704; J3010; J7030; J7120

== ENCOUNTER 2019-02-14 09:46 | Emergency (ER) | payer BC ==
[2019-02-14 09:53] VITALS: BP 136/87; PULSE 61
[2019-02-14] MEDS ORDERED: Sodium Chloride 0.9% 10 ML Syringe FLUSH PRN (10:29)
[2019-02-14] MEDS ORDERED: Prochlorperazine 10 MG/2 ML SDV IVPUSH ONE (10:29)
[2019-02-14] MEDS ORDERED: diphenhydrAMINE 50 MG/ML SDV IVPUSH ONE (10:30)
[2019-02-14] MEDS ORDERED: Ketorolac 30 MG/ML SDV IVPUSH ONE (10:30)
--- NOTE | 2019-02-14 11:42 | CT ---
Head CT Technique: Multiple axial sections through the brain were obtained. Intravenous contrast was not utilized. Comparison: No prior intracranial imaging. Findings: Ventricles along with basal cisterns and sulci over the convexities are within normal limits for the patient's age. No abnormal parenchymal densities are seen. No evidence of intracranial hemorrhage. No midline shift or mass effect is seen. Bone window settings were reviewed which shows no acute calvarial abnormality. Visualized mastoid sinuses and paranasal sinuses are clear. Impression: 1. Nothing acute is appreciated on noncontrast head CT exam. Diagnostic code #1
--- NOTE | 2019-02-14 11:44 | EDM.PDOC ---
ED HPI GENERAL MEDICAL PROBLEM - General Chief Complaint: Neurological Problem Stated Complaint: MIGRAINE Time Seen by Provider: 02/14/19 10:02 Source of Information: Reports: Patient History Limitations: Reports: No Limitations - History of Present Illness INITIAL COMMENTS - FREE TEXT/NARRATIVE: The patient presents with a headache. She has a history of migraines. This has been going on for a few days. She says the pain is behind her eyes and she also has pressure to her forehead. She usually does not get pressure to her forehead. She has a history of migraines. She has no numbness or weakness. She has some photophobia and phonophobia. She has no fever, chills, cough, chest pain, or abdominal pain. She has some nausea. She has a history of aneurysms in her family. She went to the walk in clinic yesterday and they gave her a shot. She still has the pain so she went back and they sent her over here. Onset: Gradual Duration: Day(s): Location: Reports: Head Quality: Reports: Ache Severity: Severe Improves with: Reports: None Worsens with: Reports: None Associated Symptoms: Reports: Headaches, Nausea/Vomiting. Denies: Chest Pain, Cough, Fever/Chills, Shortness of Breath head Pain Score (Numeric/FACES): 6 - Related Data Allergies Allergy/AdvReac Type Severity Reaction Status Date / Time chlorhexidine Allergy Rash Verified 02/14/19 09:54 tramadol AdvReac Headache Verified 02/14/19 09:54 Home Meds: Home Meds Levothyroxine 1 tab PO DAILY 04/11/17 [History] Ondansetron [Zofran ODT] 4 mg PO Q4HR 02/14/19 [History] tiZANidine [Zanaflex] 0.5 tab PO BEDTIME 02/14/19 [History] Past Medical History Other HEENT History: wears glasses [employer] History: Reports: Neurological History: Reports: Migraines Psychiatric History: Reports: Anxiety, Depression Endocrine/Metabolic History: Reports: Hypothyroidism - Past Surgical History Other HEENT Surgeries/Procedures: partial thyroidectomy 2 years ago Endocrine Surgical History: Reports: Thyroidectomy Other Endocrine Surgeries/Procedures: partial throidectomy Neurological Surgical History: Reports: None Social & Family History - Family History Family Medical History: Noncontributory - Tobacco Use Smoking Status *Q: Never Smoker - Caffeine Use Caffeine Use: Reports: None - Recreational Drug Use Recreational Drug Use: No ED ROS GENERAL - Review of Systems Review Of Systems: See Below Constitutional: Reports: No Symptoms HEENT: Reports: No Symptoms Respiratory: Reports: No Symptoms Cardiovascular: Reports: No Symptoms Endocrine: Reports: No Symptoms GI/Abdominal: Reports: Nausea. Denies: Abdominal Pain, Vomiting : Reports: No Symptoms Neurological: Reports: Headache ED EXAM, NEURO - Physical Exam Exam: See Below Exam Limited By: No Limitations General Appearance: Alert, No Apparent Distress Ears: Normal External Exam Nose: Normal Inspection Head Exam: Atraumatic, Normocephalic Neck: Normal Inspection Respiratory/Chest: No Respiratory Distress, Lungs Clear, Normal Breath Sounds Cardiovascular: Regular Rate, Rhythm, No Edema, No Murmur GI/Abdominal: Soft, Non-Tender, No Organomegaly, No Mass Neurological: Alert, No Motor/Sensory Deficits, Oriented x 3 Course - Vital Signs Last Recorded V/S: Last Vital Signs Temp 97.6 F 02/14/19 09:50 Pulse 61 02/14/19 09:50 Resp 19 02/14/19 09:50 BP 136/87 02/14/19 09:50 Pulse Ox 100 02/14/19 09:50 - Orders/Labs/Meds Orders: Active Orders 24 hr Category Date Time Status Peripheral IV Care [RC] . DIRECTED Care 02/14/19 10:29 Active Sodium Chloride 0.9% [Saline Flush] Med 02/14/19 10:29 Active 10 ml FLUSH ASDIRECTED PRN Peripheral IV Insertion Adult [OM.PC] Routine Oth 02/14/19 10:29 Ordered Medication Orders Sodium Chloride (Saline Flush) 10 ml FLUSH ASDIRECTED PRN PRN Reason: Keep Vein Open Last Admin: 02/14/19 11:02 Dose: 10 ml Meds: Medications Generic Name Dose Route Start Last Admin Trade Name Freq PRN Reason Stop Dose Admin Sodium Chloride 10 ml 02/14/19 10:29 02/14/19 11:02 Saline Flush FLUSH 10 ml ASDIRECTED PRN Administration Keep Vein Open Discontinued Medications Generic Name Dose Route Start Last Admin Trade Name Freq PRN Reason Stop Dose Admin Diphenhydramine HCl 50 mg 02/14/19 10:30 02/14/19 11:02 Benadryl IVPUSH 02/14/19 10:31 50 mg ONETIME ONE Administration Ketorolac Tromethamine 30 mg 02/14/19 10:30 02/14/19 11:02 Toradol IVPUSH 02/14/19 10:31 30 mg ONETIME ONE Administration Prochlorperazine Edisylate 10 mg 02/14/19 10:29 02/14/19 11:01 Compazine IVPUSH 02/14/19 10:30 10 mg ONETIME ONE Administration - Re-Assessments/Exams Free Text/Narrative Re-Assessment/Exam: 02/14/19 11:43 I ordered an IV saline lock, compazine 10mg IV, toradol 30mg IV, benadryl 50mg IV and a CT of her head. 02/14/19 11:49 She feels better and her CT looks good. I will discharge her home. Departure - Departure Time of Disposition: 11:50 Disposition: Home, Self-Care 01 Condition: Good Clinical Impression: Migraine - Discharge Information *PRESCRIPTION DRUG MONITORING PROGRAM REVIEWED*: No *COPY OF PRESCRIPTION DRUG MONITORING REPORT IN PATIENT MARICARMEN: No Referrals: Arpita Kearns MD [Primary Care Provider] - Forms: ED Department Discharge Additional Instructions: Go home and rest in a dark, quiet room. Please return if you are worse. - My Orders Last 24 Hours: My Active Orders 02/14/19 10:29 Peripheral IV Care [RC] . DIRECTED Sodium Chloride 0.9% [Saline Flush] 10 ml FLUSH ASDIRECTED PRN Peripheral IV Insertion Adult [OM.PC] Routine - Assessment/Plan Last 24 Hours: My Active Orders 02/14/19 10:29 Peripheral IV Care [RC] . DIRECTED Sodium Chloride 0.9% [Saline Flush] 10 ml FLUSH ASDIRECTED PRN Peripheral IV Insertion Adult [OM.PC] Routine
== END 2019-02-14 12:00 | disposition home or self-care (01) ==
LOC: JD.ED 09:46
DX: G43.909 Migraine, unspecified, not intractable, without status migrainosus (principal); E03.9 Hypothyroidism, unspecified; Z88.3 Allergy status to other anti-infective agents; Z88.5 Allergy status to narcotic agent; Z79.890 Hormone replacement therapy
CPT/HCPCS: 70450; 96374; 96375; 99283; J0780; J1200; J1885; 99284

== ENCOUNTER 2020-02-19 16:55 | Emergency (ER) | payer OTHER ==
[2020-02-19 17:28] VITALS: BP 143/92; PULSE 109
[2020-02-19] MEDS ORDERED: diphenhydrAMINE 50 MG Cap PO ONE (18:09)
[2020-02-19] MEDS ORDERED: Ketorolac 60 MG/2 ML SDV IM ONE (18:09)
[2020-02-19] MEDS ORDERED: Ondansetron 4 MG Tab.DIS PO ONE (18:10)
[2020-02-19] MEDS ORDERED: Haloperidol Lactate 5 MG/ML SDV IM ONE (18:10)
--- NOTE | 2020-02-19 18:13 | EDM.PDOC ---
ED HPI GENERAL MEDICAL PROBLEM - General Chief Complaint: Headache Stated Complaint: MIGRAINE X 3 WEEKS Time Seen by Provider: 02/19/20 17:56 Source of Information: Reports: Patient History Limitations: Reports: No Limitations - History of Present Illness INITIAL COMMENTS - FREE TEXT/NARRATIVE: Patient is a 29-year-old female with a history of migraines who presents to the ED complaining of a bitemporal headache that has been present for the past 3 weeks. She was seen in the walk-in clinic on 2 separate occasions during this time. She was placed on rizatriptine 10mg to which she took this morning with Zofran with no significant relief. Initially this medication did help with her headaches and reducing the severity but the headaches did not completely go away. She does have auras with having migraines which she describes as spotted lights. There is some intermittent nausea with light sensitivity and also noise sensitivity. As of today she has been developing some sinus congestion and notes with standing her migraine headaches will get worse. When she lays down it helps to relieve. She has been eating and drinking as usual. She denies being since she has had a tubal ligation. She has a history of fibromyalgia currently on gabapentin and also tizanidine. History of hypothyroidism and on replacement medication. History anxiety and depression currently on Effexor. 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: Neurological History: Reports: Migraines Psychiatric History: Reports: Anxiety, Depression Endocrine/Metabolic History: Reports: Hypothyroidism - Infectious Disease History Infectious Disease History: Reports: Chicken Pox, Shingles - Past Surgical History Other HEENT Surgeries/Procedures: partial thyroidectomy 2 years ago Endocrine Surgical History: Reports: Thyroidectomy Other Endocrine Surgeries/Procedures: partial throidectomy Neurological Surgical History: Reports: None Social & Family History - Family History Family Medical History: Noncontributory - Tobacco Use Smoking Status *Q: Never Smoker - Caffeine Use Caffeine Use: Reports: Coffee - Recreational Drug Use Recreational Drug Use: No ED ROS GENERAL - Review of Systems Review Of Systems: See Below Constitutional: Denies: Fever, Chills, Malaise, Weakness, Fatigue, Decreased Appetite HEENT: Reports: Other (Sinus congestion, runny nose, postnasal drip). Denies: Dental Pain, Ear Pain Respiratory: Denies: Shortness of Breath, Wheezing, Pleuritic Chest Pain, Cough, Sputum Cardiovascular: Denies: Chest Pain, Dyspnea on Exertion, Lightheadedness, Palpitations, Syncope, Other (Dizziness) GI/Abdominal: Denies: Abdominal Pain, Decreased Appetite, Nausea, Vomiting : Reports: No Symptoms Musculoskeletal: Reports: Other (Chronic upper back). Denies: Neck Pain Neurological: Reports: Headache. Denies: Confusion, Dizziness, Numbness, Paresthesia, Pre-Existing Deficit, Tingling, Tremors, Trouble Speaking, Difficulty Walking, Weakness, Gait Disturbance Psychiatric: Denies: Anxiety - Physical Exam Exam: See Below Exam Limited By: No Limitations General Appearance: Alert, WD/WN, No Apparent Distress Eye Exam: Bilateral Eye: EOMI, Normal Inspection, Nystagmus (None noted), PERRL, Vision Changes (None noted per patient) Ears: Normal External Exam, Normal Canal, Hearing Grossly Normal, Normal TMs Nose: Normal Inspection, Normal Mucosa, No Blood Throat/Mouth: Normal Inspection, Normal Lips, Normal Teeth, Normal Oropharynx, Normal Voice, No Airway Compromise Head Exam: Atraumatic, Normocephalic, Sinus Tenderness Neck: Normal Inspection, Supple, Non-Tender, Full Range of Motion. No: Lymphadenopathy (L), Lymphadenopathy (R) Respiratory/Chest: No Respiratory Distress, Lungs Clear, Normal Breath Sounds, No Accessory Muscle Use, Chest Non-Tender Cardiovascular: Normal Peripheral Pulses, Regular Rate, Rhythm, No Murmur GI/Abdominal: Normal Bowel Sounds, Soft, Non-Tender, No Organomegaly, No Distention Neuro Exam (Abbreviated): Alert, Oriented, CN II-XII Intact, Normal Cognition, Normal Gait, No Motor/Sensory Deficits, Other (No facial droop, slurred speech, weakness discrepancies to the upper and lower extremities. [id number], rapid alternate movements, intact. Patient is able to walk on her heels and toes. No ataxia noted.). No: Sensory/Motor Deficit Back Exam: Normal Inspection Extremities: Normal Inspection, Normal Range of Motion Psychiatric: Normal Affect, Normal Mood Skin Exam: Warm, Dry, Intact, Normal Color, No Rash Course - Vital Signs Last Recorded V/S: Last Vital Signs Temp 97.1 F 02/19/20 17: Pulse 109 H 02/19/20 17:21 Resp 18 02/19/20 17:21 BP 143/92 H 02/19/20 17: Pulse Ox 97 02/19/20 17:21 - Orders/Labs/Meds Meds: Medications Discontinued Medications Generic Name Dose Route Start Last Admin Trade Name Jorgeq PRN Reason Stop Dose Admin Diphenhydramine HCl 50 mg 02/19/20 18:09 02/19/20 18:25 Benadryl PO 02/19/20 18:10 50 mg ONETIME ONE Administration Haloperidol Lactate 5 mg 02/19/20 18:10 02/19/20 18:25 Haldol IM 02/19/20 18:11 5 mg ONETIME ONE Administration Ketorolac Tromethamine 60 mg 02/19/20 18:09 02/19/20 18:25 Toradol IM 02/19/20 18:10 60 mg ONETIME ONE Administration Ondansetron HCl 4 mg 02/19/20 18:10 02/19/20 18:24 Zofran Odt PO 02/19/20 18:11 4 mg ONETIME ONE Administration - Re-Assessments/Exams Free Text/Narrative Re-Assessment/Exam: On exam patient's vital signs blood pressure 143/92, heart rate 109, temperature is 97.1, respiratory rate is 18, O2 sats are 97%. She is sitting in a dark ro om looking at her cell phone. She does not appear in acute distress. She speaks in full word sentences and able to make eye contact. When lights are turned on she is able to keep her eyes open during examination. No limitations noted from moving from bed to standing position. She tolerated standing up on her own with no difficulties. Blood pressure standing was 159/99 and heart rate was 98. She is not orthostatic. I have given her some different options on treatment for this migraine. Treatment here in the ED would include Toradol 60 mg IM, Benadryl 50 mg IM, Zofran 4 mg ODT, and also Haldol 5 mg IM. She needs to arrange a ride. She agrees with plan and would like to proceed. I have also informed her that she should be seen by a primary care provider or neurologist for continuation of her care. 02/19/20 19:20 Reassessment, patient has no headache. She is ready to be discharged home. She has a ride. Return precautions discussed with the patient. She had no further questions or concerns. Departure - Departure Time of Disposition: 19:23 Disposition: Home, Self-Care 01 Condition: Good Clinical Impression: Migraine Qualifiers: Migraine type: with aura Status migrainosus presence: without status migrainosus Intractability: not intractable Qualified Code(s): G43.109 - Migraine with aura, not intractable, without status migrainosus - Discharge Information Instructions: Migraine Headache, [id number] Referrals: Arpita Kearns MD [Primary Care Provider] - Forms: ED Department Discharge Additional Instructions: Suggest going home finding a dark room to sleeping with no distractions. Push t he fluids. Continue taking all the home medications as prescribed. Establish care with local PCP and Neurologists for continued management of migraines. No driving this evening due to medications you received. Return to the E.D. if you develop any new or worsening symptoms. Sepsis Event Note (ED) - Evaluation Sepsis Screening Result: No Definite Risk - Focused Exam Vital Signs: Vital Signs Temp Pulse Resp BP Pulse Ox 02/19/20 17:21 97.1 F 109 H 18 143/92 H 97
== END 2020-02-19 19:41 | disposition home or self-care (01) ==
LOC: JD.ED 16:55
DX: G43.109 Migraine with aura, not intractable, without status migrainosus (principal); F41.9 Anxiety disorder, unspecified; F32.9 Major depressive disorder, single episode, unspecified; E03.9 Hypothyroidism, unspecified; Z88.6 Allergy status to analgesic agent; Z88.8 Allergy status to other drugs, medicaments and biological substances; Z79.899 Other long term (current) drug therapy
CPT/HCPCS: 96372; 99283; A9270; J1630; J1885

== ENCOUNTER 2020-10-30 07:39 | Emergency (ER) | payer OTHER ==
[2020-10-30 07:50] VITALS: BP 128/79; PULSE 69
[2020-10-30] MEDS ORDERED: Sodium Chloride 0.9% 10 ML Syringe FLUSH PRN (08:09)
--- NOTE | 2020-10-30 08:35 | EDM.PDOC ---
ED HPI GENERAL MEDICAL PROBLEM - General Chief Complaint: Chest Pain Stated Complaint: CHEST PAIN Time Seen by Provider: 10/30/20 07:58 Source of Information: Reports: Patient, RN Notes Reviewed - History of Present Illness INITIAL COMMENTS - FREE TEXT/NARRATIVE: 30 yr old female with onset of mid chest discomfort about 4 hrs ago early this morning. She has a pulse oximeter and noticed her heart rate go clear up to the 160 to 170 range for a few minutes. That settled down very quickly but continues to have mild to moderate ant. chest discomfort. Has had very mild nasal congestion, very occasional cough the last few days. No fever or chills. Has not been short of breath. Current discomfort is mildly worse with deep breathing. Middle Chest Pain Score (Numeric/FACES): 8 - Related Data Allergies Allergy/AdvReac Type Severity Reaction Status Date / Time chlorhexidine Allergy Rash Verified 02/19/20 17:28 tramadol AdvReac Headache Verified 02/19/20 17:28 Home Meds: Home Meds Levothyroxine 25 mcg PO DAILY 04/11/17 [History] tiZANidine [Zanaflex] 4 mg PO BEDTIME 02/14/19 [History] Rizatriptan Benzoate [Rizatriptan] 10 mg PO ASDIRECTED 02/19/20 [History] FLUoxetine [PROzac] 40 mg PO DAILY 10/30/20 [History] Rimegepant Sulfate [Nurtec Odt] 75 mg PO ASDIRECTED PRN 10/30/20 [History] Past Medical History Other HEENT History: wears glasses [employer] History: Reports: Neurological History: Reports: Migraines Psychiatric History: Reports: Anxiety, Depression Endocrine/Metabolic History: Reports: Hypothyroidism - Infectious Disease History Infectious Disease History: Reports: Chicken Pox, Shingles - Past Surgical History Other HEENT Surgeries/Procedures: partial thyroidectomy 2 years ago Female Surgical History: Reports: Tubal Ligation Endocrine Surgical History: Reports: Thyroidectomy Other Endocrine Surgeries/Procedures: partial throidectomy Social & Family History - Family History Family Medical History: No Pertinent Family History - Tobacco Use Tobacco Use Status *Q: Never Tobacco User - Caffeine Use Caffeine Use: Reports: Coffee, Soda - Recreational Drug Use Recreational Drug Use: No ED ROS GENERAL - Review of Systems Review Of Systems: See Below Constitutional: Denies: Fever, Chills, Diaphoresis HEENT: Reports: Rhinitis Respiratory: Reports: Pleuritic Chest Pain, Cough. Denies: Shortness of Breath Cardiovascular: Reports: Chest Pain GI/Abdominal: Denies: Abdominal Pain, Nausea, Vomiting Musculoskeletal: Denies: Neck Pain, Shoulder Pain, Arm Pain Skin: Reports: No Symptoms Neurological: Reports: Dizziness ED EXAM, GENERAL - Physical Exam Exam: See Below General Appearance: Alert, No Apparent Distress Eye Exam: Bilateral Eye: PERRL Throat/Mouth: Normal Inspection Head: Atraumatic Neck: Supple Respiratory/Chest: No Respiratory Distress, Lungs Clear, Normal Breath Sounds, Other (there is tenderness of both sternal borders L greater than R) Cardiovascular: Regular Rate, Rhythm GI/Abdominal: Soft, Non-Tender. No: Guarding Back Exam: No: CVA Tenderness (L), CVA Tenderness (R) Extremities: Normal Inspection, Normal Range of Motion. No: Pedal Edema, Leg Pain, Increased Warmth, Redness Neurological: Alert, Oriented, No Motor/Sensory Deficits Skin Exam: Warm, Dry, Normal Color #1 Interpretation EKG Date: 10/30/20 Rhythm: NSR [place]: Normal P-Wave: Present QRS: Normal ST-T: Normal QT: Normal Course - Vital Signs Last Recorded V/S: Last Vital Signs Temp 96.6 F L 10/30/20 07:46 Pulse 69 10/30/20 07:46 Resp 16 10/30/20 07:46 BP 128/79 10/30/20 07:46 Pulse Ox 98 10/30/20 07:46 - Orders/Labs/Meds Orders: Active Orders 24 hr Category Date Time Status EKG Documentation Completion [RC] STAT Care 10/30/20 07:46 Active Holter Monitor 48 Hours [RC] .PRN Care 10/30/20 10:05 Active Peripheral IV Care [RC] . DIRECTED Care 10/30/20 08:09 Active Sodium Chloride 0.9% [Saline Flush] Med 10/30/20 08:09 Active 10 ml FLUSH ASDIRECTED PRN Peripheral IV Insertion Adult [OM.PC] Stat Oth 10/30/20 08:09 Ordered Medication Orders Sodium Chloride (Sodium Chloride 0.9% 10 Ml Syringe) 10 ml FLUSH ASDIRECTED PRN PRN Reason: Keep Vein Open Last Admin: 10/30/20 08:32 Dose: 10 ml Documented by: DUDLEY Labs: Laboratory Tests 10/30/20 10/30/20 Range/Units 08:35 08:35 WBC 6.62 (3.98-10.04) K/mm3 RBC 4.43 (3.98-5.22) M/mm3 Hgb 11.5 (11.2-15.7) gm/dl Hct 37.1 (34.1-44.9) % MCV 83.7 (79.4-94.8) fl MCH 26.0 (25.6-32.2) pg MCHC 31.0 L (32.2-35.5) g/dl RDW Std Deviation 46.1 (36.4-46.3) fL Plt Count 315 (182-369) K/mm3 MPV 9.2 L (9.4-12.3) fl Neut % (Auto) 56.6 (34.0-71.1) % Lymph % (Auto) 36.7 (19.3-51.7) % [place] % (Auto) 5.4 (4.7-12.5) % Eos % (Auto) 0.9 (0.7-5.8) Baso % (Auto) 0.2 (0.1-1.2) % Neut # (Auto) 3.75 (1.56-6.13) K/mm3 Lymph # (Auto) 2.43 (1.18-3.74) K/mm3 [place] # (Auto) 0.36 (0.24-0.36) K/mm3 Eos # (Auto) 0.06 (0.04-0.36) K/mm3 Baso # (Auto) 0.01 (0.01-0.08) K/mm3 Sodium 136 (136-145) mEq/L Potassium 4.2 (3.5-5.1) mEq/L Chloride 103 (98-107) mEq/L Carbon Dioxide 22 (21-32) mEq/L Anion Gap 15.2 H (5-15) BUN 9 (7-18) mg/dL Creatinine 0.8 (0.55-1.02) mg/dL Est Cr Clr Drug Dosing 88.79 mL/min Estimated GFR (MDRD) > 60 (>60) mL/min BUN/Creatinine Ratio 11.3 L (14-18) Glucose 88 (70-99) mg/dL Calcium 8.4 L (8.5-10.1) mg/dL Total Bilirubin 0.3 (0.2-1.0) mg/dL AST 10 L (15-37) U/L ALT 20 (14-59) U/L Alkaline Phosphatase 93 (46-116) U/L Troponin I < 0.017 (0.00-0.056) ng/mL Total Protein 7.2 (6.4-8.2) g/dl Albumin 3.3 L (3.4-5.0) g/dl Globulin 3.9 gm/dL Albumin/Globulin Ratio 0.9 L (1-2) TSH 3rd Generation 2.477 (0.358-3.74) uIU/mL Meds: Medications Generic Name Dose Route Start Last Admin Trade Name Freq PRN Reason Stop Dose Admin Sodium Chloride 10 ml 10/30/20 08:09 10/30/20 08:32 Sodium Chloride 0.9% 10 Ml Syringe FLUSH 10 ml ASDIRECTED PRN Administration Keep Vein Open - Re-Assessments/Exams Free Text/Narrative Re-Assessment/Exam: 10/30/20 10:29 trop, tsh, other labs normal. Has been in sinus rythm the whole time here in the ED, rate mainly in the 70's, no ectopy. She does have chest wall tenderness, parsternal left more than right. Will send home on 48 hr holter moniter. Departure - Departure Time of Disposition: 10:07 Disposition: Home, Self-Care 01 Condition: Fair Clinical Impression: Anterior chest wall pain, Atypical chest pain, Tachycardia Instructions: Supraventricular Tachycardia, Adult, Ambulatory Cardiac Monitoring Referrals: Arpita Kearns MD [Primary Care Provider] - Forms: ED Department Discharge Additional Instructions: 48 hour holter moniter. Alternate ice and heat to mid chest as needed for discomfort. Tylenol or ibuprofen 3 to 4 times daily as needed. Follow up with Dr Simpson in about 10 days for results, further eval and treatment as needed. Return to ED as needed if symptoms worsening in any way. Sepsis Event Note (ED) - Evaluation Sepsis Screening Result: No Definite Risk - Focused Exam Vital Signs: Vital Signs Temp Pulse Resp BP Pulse Ox 10/30/20 07:46 96.6 F L 69 16 128/79 98 - My Orders Last 24 Hours: My Active Orders 10/30/20 07:46 EKG Documentation Completion [RC] STAT 10/30/20 08:09 Peripheral IV Care [RC] . DIRECTED Sodium Chloride 0.9% [Saline Flush] 10 ml FLUSH ASDIRECTED PRN Peripheral IV Insertion Adult [OM.PC] Stat 10/30/20 10:05 Holter Monitor 48 Hours [RC] .PRN - Assessment/Plan Last 24 Hours: My Active Orders 10/30/20 07:46 EKG Documentation Completion [RC] STAT 10/30/20 08:09 Peripheral IV Care [RC] . DIRECTED Sodium Chloride 0.9% [Saline Flush] 10 ml FLUSH ASDIRECTED PRN Peripheral IV Insertion Adult [OM.PC] Stat 10/30/20 10:05 Holter Monitor 48 Hours [RC] .PRN
== END 2020-10-30 10:45 | disposition home or self-care (01) ==
LOC: JD.ED 07:39
DX: R07.89 Other chest pain (principal); R00.0 Tachycardia, unspecified; E03.9 Hypothyroidism, unspecified; Z79.899 Other long term (current) drug therapy; Z91.048 Other nonmedicinal substance allergy status; Z88.5 Allergy status to narcotic agent
CPT/HCPCS: 36415; 80053; 84443; 84484; 85025; 93005; 93010; 93225; 93226; 99284; 99285-25

== ENCOUNTER 2021-02-15 09:46 | Emergency (ER) | payer OTHER ==
[2021-02-15 10:10] VITALS: BP 127/88; PULSE 64
--- NOTE | 2021-02-15 12:15 | EDM.PDOC ---
ED HPI GENERAL MEDICAL PROBLEM - General Chief Complaint: Neurological Problem Stated Complaint: DIZZY Time Seen by Provider: 02/15/21 10:06 Source of Information: Reports: Patient History Limitations: Reports: No Limitations - History of Present Illness INITIAL COMMENTS - FREE TEXT/NARRATIVE: The patient presents with dizziness. This morning when she woke up she looked at the alarm clock and she got dizzy where the room was spinning. She now feels off balance. She has never had trouble like this before. She has no fever, chills, cough, chest pain, shortness of breath, ear pain, ringing in ears, or hearing loss. She has no nausea or vomiting. She has no chest pain or shortness of breath. She has no headache. Onset: Sudden Duration: Hour(s): Improves with: Reports: None Worsens with: Reports: None Associated Symptoms: Reports: No Other Symptoms - Related Data Allergies Allergy/AdvReac Type Severity Reaction Status Date / Time chlorhexidine Allergy Rash Verified 02/15/21 10:10 tramadol AdvReac Headache Verified 02/15/21 10:10 Home Meds: Home Meds Levothyroxine 25 mcg PO DAILY 04/11/17 [History] tiZANidine [Zanaflex] 4 mg PO BEDTIME 02/14/19 [History] Rizatriptan Benzoate [Rizatriptan] 10 mg PO ASDIRECTED 02/19/20 [History] FLUoxetine [PROzac] 40 mg PO DAILY 10/30/20 [History] Rimegepant Sulfate [Nurtec Odt] 75 mg PO ASDIRECTED PRN 10/30/20 [History] Verapamil HCl [Verapamil Sr] 120 mg PO DAILY 02/15/21 [History] Past Medical History Other HEENT History: wears glasses [employer] History: Reports: Neurological History: Reports: Migraines Psychiatric History: Reports: Anxiety, Depression Endocrine/Metabolic History: Reports: Hypothyroidism - Infectious Disease History Infectious Disease History: Reports: Chicken Pox, Shingles - Past Surgical History Other HEENT Surgeries/Procedures: partial thyroidectomy 2 years ago Female Surgical History: Reports: Tubal Ligation Endocrine Surgical History: Reports: Thyroidectomy Other Endocrine Surgeries/Procedures: partial throidectomy Neurological Surgical History: Reports: None Social & Family History - Family History Family Medical History: No Pertinent Family History - Tobacco Use Tobacco Use Status *Q: Never Tobacco User - Caffeine Use Caffeine Use: Reports: Coffee, Soda ED ROS GENERAL - Review of Systems Review Of Systems: See Below Constitutional: Reports: No Symptoms HEENT: Reports: No Symptoms Respiratory: Reports: No Symptoms Cardiovascular: Reports: No Symptoms Endocrine: Reports: No Symptoms GI/Abdominal: Reports: No Symptoms : Reports: No Symptoms Musculoskeletal: Reports: No Symptoms ED EXAM, NEURO - Physical Exam Exam: See Below Exam Limited By: No Limitations General Appearance: Alert, No Apparent Distress Eye Exam: Left Eye: Nystagmus Ears: Normal External Exam Nose: Normal Inspection Head Exam: Atraumatic, Normocephalic Neck: Normal Inspection Respiratory/Chest: No Respiratory Distress, Lungs Clear, Normal Breath Sounds Cardiovascular: Regular Rate, Rhythm, No Edema, No Murmur GI/Abdominal: Soft, Non-Tender, No Organomegaly, No Mass Course - Vital Signs Last Recorded V/S: Last Vital Signs Temp 98.0 F 02/15/21 10:06 Pulse 64 02/15/21 10:06 Resp 18 02/15/21 10:06 BP 127/88 02/15/21 10:06 Pulse Ox 100 02/15/21 10:06 - Re-Assessments/Exams Free Text/Narrative Re-Assessment/Exam: 02/15/21 12:14 I called [facility] and one of the therapists Volodymyr came to see the patient and he did the eply maneuver and she did great. I will discharge her home. Departure - Departure Time of Disposition: 12:20 Disposition: Home, Self-Care 01 Condition: Good Clinical Impression: Benign positional vertigo Qualifiers: Laterality: left Qualified Code(s): H81.12 - Benign paroxysmal vertigo, left ear - Discharge Information *PRESCRIPTION DRUG MONITORING PROGRAM REVIEWED*: Not Applicable *COPY OF PRESCRIPTION DRUG MONITORING REPORT IN PATIENT MARICARMEN: Not Applicable Referrals: Arpita Kearns MD [Primary Care Provider] - Forms: ED Department Discharge Additional Instructions: Go home and rest. Drink plenty of fluids. Follow up with [facility] next week. Please return if you are worse. Sepsis Event Note (ED) - Evaluation Sepsis Screening Result: No Definite Risk - Focused Exam Vital Signs: Vital Signs Temp Pulse Resp BP Pulse Ox 02/15/21 10:06 98.0 F 64 18 127/88 100
== END 2021-02-15 12:28 | disposition home or self-care (01) ==
LOC: JD.ED 09:46
DX: H81.12 Benign paroxysmal vertigo, left ear (principal); E03.9 Hypothyroidism, unspecified; Z79.899 Other long term (current) drug therapy; Z88.1 Allergy status to other antibiotic agents; Z88.5 Allergy status to narcotic agent
CPT/HCPCS: 99283

== ENCOUNTER 2023-04-05 00:48 | Emergency (ER) | payer MEDICAID ==
[2023-04-05] MEDS ORDERED: Ibuprofen 600 MG Tab PO ONE (01:30)
[2023-04-05 03:14] VITALS: BP 107/57; PULSE 67
== END 2023-04-05 02:24 | disposition home or self-care (01) ==
LOC: JD.ED 00:48
DX: S93.401A Sprain of unspecified ligament of right ankle, initial encounter (principal); E03.9 Hypothyroidism, unspecified; Z79.899 Other long term (current) drug therapy; Z88.8 Allergy status to other drugs, medicaments and biological substances; W18.30XA Fall on same level, unspecified, initial encounter
CPT/HCPCS: 73610; 99284; A9270; 99283

== ENCOUNTER 2023-04-25 09:42 | Emergency (ER) | payer OTHER, MEDICAID ==
[2023-04-25] MEDS ORDERED: Sodium Chloride 0.9% 10 ML Syringe FLUSH PRN ×2 (09:49→09:54)
[2023-04-25] MEDS ORDERED: Morphine 4 MG/ML Syringe IVPUSH ONE (09:52)
[2023-04-25] MEDS ORDERED: Naloxone 0.4 MG/ML SDV IVPUSH PRN (09:52)
[2023-04-25] MEDS ORDERED: Iopamidol 612 MG/ML 100 ML Bottle IVPUSH ONE (09:54)
[2023-04-25 10:07] LABS: BASOPHILS PERCENT AUTO 0.3 % (0.0-1.0); EOSINOPHILS ABSOLUTE AUTO 0.2 K/mm3 (0.0-0.4); EOSINOPHILS PERCENT AUTO 2.4 % (0.0-6.0); HEMATOCRIT 39.1 % (37.0-47.0); HEMOGLOBIN 12.9 gm/dl (12.0-16.0); IMMATURE GRAN ABSOLUTE AUTO 0.01 K/mm3 (0.00-0.05); IMMATURE GRAN PERCENT AUTO 0.2 % (0.0-0.4); LYMPHOCYTES ABSOLUTE AUTO 2.4 K/mm3 (1.0-4.8); LYMPHOCYTES PERCENT AUTO 38.3 % (24.0-44.0); MEAN CORPUSCULAR HEMOGLOBIN 27.9 pg (28.0-32.0); MEAN CORPUSCULAR VOLUME 84.4 fl (83.0-99.0); MEAN PLATELET VOLUME 9.2 fl (9.4-12.3); MONOCYTES ABSOLUTE AUTO 0.4 K/mm3 (0.0-0.8); MONOCYTES PERCENT AUTO 6.3 % (0.0-8.0); NEUTROPHILS ABSOLUTE AUTO 3.3 K/mm3 (1.8-7.7); NEUTROPHILS PERCENT AUTO 52.5 % (41.0-71.0); PLATELET COUNT,PLT 291 K/mm3 (150-400); RED BLOOD CELL COUNT 4.63 M/mm3 (4.10-5.30); WHITE BLOOD CELL COUNT,WBC 6.32 K/mm3 (3.9-11.3)
[2023-04-25 10:28] LABS: A/G RATIO 0.8 (1-2); ALBUMIN 3.3 g/dl (3.4-5.0); ANION GAP 13.8 (5-15); BILIRUBIN TOTAL 0.3 mg/dL (0.2-1.0); BUN/CREATININE RATIO 13.8 (14-18); CREATININE 0.8 mg/dL (0.55-1.02); EST CRCL DRUG DOSING (CG) 86.37 mL/min; MAGNESIUM 1.7 mg/dL (1.8-2.4); POTASSIUM,K 3.8 mEq/L (3.5-5.1); PROTEIN TOTAL,TP 7.5 g/dl (6.4-8.2)
[2023-04-25 11:12] LABS: APPEARANCE,URINE CLEAR (Clear); BILIRUBIN,URINE NEGATIVE (Negative); COLOR,URINE LIGHT YELLOW (Yellow); GLUCOSE,URINE NEGATIVE (Negative); KETONES,URINE NEGATIVE (Negative); LEUKOCYTE ESTERASE,URINE NEGATIVE (Negative); NITRITE,URINE NEGATIVE (Negative); OCCULT BLOOD,URINE TRACE-INTACT (Negative); PH,URINE 6.5 (5.0-8.0); PROTEIN,URINE NEGATIVE (Negative); UROBILINOGEN,URINE 0.2 (0.2-1.0)
[2023-04-25 11:54] VITALS: BP 150/75; PULSE 68
[2023-04-25 12:02] LABS: BACTERIA,URINE OCCASIONAL /hpf (FEW); MUCUS,URINE NOT SEEN /hpf (FEW); RBC,URINE 0-5 /hpf (0-5); SQUAMOUS EPITHELIAL CELLS,UR 0-5 /hpf (0-5); WBC,URINE 0-5 /hpf (0-5)
== END 2023-04-25 11:54 | disposition home or self-care (01) ==
LOC: JD.ED 09:42
DX: S30.1XXA Contusion of abdominal wall, initial encounter (principal); S30.0XXA Contusion of lower back and pelvis, initial encounter; S20.211A Contusion of right front wall of thorax, initial encounter; S70.01XA Contusion of right hip, initial encounter; E03.9 Hypothyroidism, unspecified; Z88.8 Allergy status to other drugs, medicaments and biological substances; Z88.5 Allergy status to narcotic agent; Z79.899 Other long term (current) drug therapy; V47.5XXA Car driver injured in collision with fixed or stationary object in traffic accident, initial encounter; Y93.I9 Activity, other involving external motion
CPT/HCPCS: 36415; 71260; 71260-26; 74177; 74177-26; 80053; 81001; 83735; 85025; 93005; 93010; 96374; 99284; 99284-25; J2270; J3490; Q9967

== ENCOUNTER 2024-04-10 22:07 | Emergency (ER) | payer MEDICAID ==
[2024-04-10] MEDS ORDERED: Sodium Chloride 0.9% 10 ML Syringe FLUSH PRN (22:14)
[2024-04-10 22:38] LABS: BASOPHILS PERCENT AUTO 0.2 % (0.0-1.0); EOSINOPHILS ABSOLUTE AUTO 0.1 K/mm3 (0.0-0.4); EOSINOPHILS PERCENT AUTO 1.5 % (0.0-6.0); HEMOGLOBIN 12.4 gm/dl (12.0-16.0); IMMATURE GRAN ABSOLUTE AUTO 0.02 K/mm3 (0.00-0.05); IMMATURE GRAN PERCENT AUTO 0.2 % (0.0-0.4); LYMPHOCYTES ABSOLUTE AUTO 3.1 K/mm3 (1.0-4.8); LYMPHOCYTES PERCENT AUTO 34.7 % (24.0-44.0); MEAN CORPUSCULAR HGB CONC 32.6 g/dl (32.0-36.0); MEAN CORPUSCULAR VOLUME 85.8 fl (83.0-99.0); MONOCYTES ABSOLUTE AUTO 0.4 K/mm3 (0.0-0.8); MONOCYTES PERCENT AUTO 4.6 % (0.0-8.0); NEUTROPHILS ABSOLUTE AUTO 5.3 K/mm3 (1.8-7.7); NEUTROPHILS PERCENT AUTO 58.8 % (41.0-71.0); PLATELET COUNT,PLT 275 K/mm3 (150-400); RED BLOOD CELL COUNT 4.43 M/mm3 (4.10-5.30); WHITE BLOOD CELL COUNT,WBC 9.04 K/mm3 (3.9-11.3)
[2024-04-10] MEDS: Sodium Chloride 0.9% 1,000 ML IV ONE (22:41)
[2024-04-10 23:09] LABS: A/G RATIO 0.9 (1-2); ALANINE AMINOTRANSFERASE,ALT 22 U/L (14-59); ALBUMIN 3.6 g/dl (3.4-5.0); ALKALINE PHOSPHATASE 89 U/L (46-116); ANION GAP 12.6 (5-15); ASPARTATE AMNIOTRANSFERASE,AST 16 U/L (15-37); BILIRUBIN TOTAL 0.3 mg/dL (0.2-1.0); BLOOD UREA NITROGEN,BUN 11 mg/dL (7-18); BUN/CREATININE RATIO 12.2 (14-18); CALCIUM 8.9 mg/dL (8.5-10.1); CARBON DIOXIDE,CO2 25 mEq/L (21-32); CHLORIDE,CL 103 mEq/L (98-107); CREATININE 0.9 mg/dL (0.55-1.02); EST CRCL DRUG DOSING (CG) 76.06 mL/min; ESTIMATED GFR 86 mL/min (>60); GLUCOSE RANDOM 95 mg/dL (70-99); LIPASE 24 U/L (16-77); MAGNESIUM 2.1 mg/dL (1.8-2.4); POTASSIUM,K 3.6 mEq/L (3.5-5.1); PROTEIN TOTAL,TP 7.7 g/dl (6.4-8.2); SODIUM,NA 137 mEq/L (136-145); TSH 2.644 uIU/mL (0.358-3.74)
[2024-04-10 23:10] LABS: TROPONIN I HIGH SENSITIVITY < 4 pg/mL (<=51)
[2024-04-11 02:36] VITALS: BP 141/78; PULSE 69
== END 2024-04-11 02:30 | disposition home or self-care (01) ==
LOC: JD.ED 22:07
DX: R07.89 Other chest pain (principal); R00.2 Palpitations; E03.9 Hypothyroidism, unspecified; Z79.890 Hormone replacement therapy; Z79.899 Other long term (current) drug therapy; Z88.5 Allergy status to narcotic agent; Z88.8 Allergy status to other drugs, medicaments and biological substances
CPT/HCPCS: 36415; 71045; 80053; 83690; 83735; 84443; 84484; 84703; 85025; 93005; 99285; J7030

== ENCOUNTER 2025-02-02 21:28 | Emergency (ER) | payer MEDICAID ==
[2025-02-03 00:35] VITALS: BP 155/82; PULSE 94
== END 2025-02-02 23:35 | disposition home or self-care (01) ==
LOC: JD.ED 21:28
DX: J45.901 Unspecified asthma with (acute) exacerbation (principal); J20.9 Acute bronchitis, unspecified; E03.9 Hypothyroidism, unspecified; Z79.890 Hormone replacement therapy; Z79.899 Other long term (current) drug therapy
CPT/HCPCS: 71045; 94640; 99285; A9270; J7512; J7620; 99284